=== PATIENT | male | born 1985 | race Caucasian/White ===

== ENCOUNTER → 2019-11-24 12:06 | Outpatient (CLI) | payer OTHER ==
[~2019-11-24 12:06] MED LIST: BENADRYL25 MG PO; FEXOFENADINE H180 MG PO; HYDROCODON-ACE1 EA10 PO; SINGULAIR10 MG PO; ZANAFLEX4 MG PO
[2019-11-26 06:23] VITALS: BMI 24.6
== END | disposition home or self-care (01) ==
LOC: D.LABREF 12:06
PROVIDERS: ATTEND Surgery
DX: Z11.59 Encounter for screening for other viral diseases (principal)

== ENCOUNTER 2019-11-26 05:24 | Day surgery (SDC) | payer OTHER ==
[~2019-11-26] VITALS: Ht 182.9 cm; Wt 82.1 kg
[~2019-11-26 05:24] MED LIST changes: -HYDROCODON-ACE1 EA10 PO
[2019-11-26 06:23] VITALS: BP 116/85; Ht 182.9 cm; Wt 82.1 kg
[2019-11-26] MEDS ORDERED: HYDROCODON-ACE1 EA10 PO (09:12)
== END 2019-11-26 11:05 | disposition home or self-care (01) ==
LOC: D.OPS 05:24 → D.PAN 09:00 → D.OPS 09:00
PROVIDERS: ATTEND Surgery
DX: G57.81 Other specified mononeuropathies of right lower limb (principal); G89.18 Other acute postprocedural pain; K40.90 Unilateral inguinal hernia, without obstruction or gangrene, not specified as recurrent; J45.909 Unspecified asthma, uncomplicated; Z72.0 Tobacco use